=== PATIENT | male | born 1985 | race Two or more races ===

== ENCOUNTER 2024-01-18 13:30 | Emergency (ER) | payer BC ==
[~2024-01-18] VITALS: Ht 180.3 cm; Wt 99.8 kg
[2024-01-18] MEDS ORDERED: IBUPROFEN 400 MG TABLET ONE (14:14)
[2024-01-18] MEDS: IBUPROFEN 400 MG TABLET PO ONE (14:15)
[2024-01-18 14:34] VITALS: BP 125/86; TEMP 98; O2SAT 98
== END 2024-01-18 14:34 | disposition home or self-care (01) ==
LOC: ER 13:40
DX: J02.9 Acute pharyngitis, unspecified (principal); M06.9 Rheumatoid arthritis, unspecified